=== PATIENT | female | born 1985 | race Caucasian/White ===

== ENCOUNTER → 2020-01-03 11:52 | Outpatient (CLI) | payer BC, SELFPAY ==
[2020-01-03 12:27] LABS: Basophils % 0.5 % (0.1-2.0); Eosinophils # 0.2 K/mm3 (0.0-0.4); Eosinophils % 2.4 % (0.1-12.0); Hematocrit 37.9 % (37.0-47.0); Hemoglobin 11.8 g/dL (12.2-16.2); Lymphocytes # 1.4 K/mm3 (0.7-4.5); Lymphocytes % 20.7 % (10-50); Mean Corpuscular HGB Conc 31.1 g/dL (31.8-35.4); Mean Corpuscular Hemoglobin 25.2 pg (27.0-31.2); Mean Corpuscular Volume 81.2 fl (81-99); Mean Platelet Volume 7.7 fl (7.4-10.4); Monocytes # 0.3 K/mm3 (0.1-1.0); Monocytes % 4.5 % (1.7-9.3); Neutrophils # 4.7 K/mm3 (1.8-7.8); Neutrophils % 71.9 % (37.0-80.0); Platelet Count 286 K/mm3 (142-424); Red Blood Count 4.67 M/mm3 (4.20-5.40); Red Cell Distribution Width 14.4 % (11.5-17.5); White Blood Count 6.5 K/mm3 (4.8-10.8)
[2020-01-04 10:22] LABS: HIV Screen 4th Generation wRfx Non Reactive (Non Reactive); Hepatitis B Surface Antigen Negative (Negative); Hepatitis C Antibody <0.1 s/co ratio (0.0-0.9)
[2020-01-04 15:21] LABS: Rapid Plasma Reagin Ab Titer Non Reactive (NonRea<1:1)
== END ==
PROVIDERS: Visit Provider Nurse Practitioner Obstetrics & Gynecology
DX: Z34.90 Encounter for supervision of normal pregnancy, unspecified, unspecified trimester (principal)
CPT/HCPCS: 36415; 85025; 86592; 86703; 86762; 86850; 87340; 87380; G0432

== ENCOUNTER → 2020-01-04 09:31 | Outpatient (CLI) | payer BC, SELFPAY ==
--- NOTE | 2020-01-04 09:31 | US_ITS ---
PROCEDURE: US OB <= 14 WEEKS FETUS CLINICAL INDICATION: US OB for DATES COMPARISON: No exams were available for comparison FINDINGS: An intrauterine gestational sac is present with a pole with a crown-rump length of 2.1cm correlating to gestational age of 8weeks 6days. heart tones are present with an FHR of 170bpm. Yolk sac is noted. There is a small area of decreased echogenicity along the lower aspect of the gestational sac measuring 12 x 4 mm and could represent a small subchorionic bleed. IMPRESSION: Live IUP at 8 weeks 6 days. Suspect a small subchorionic bleed. Estimated due date by Ultrasound is 08/09/2020 Dictated by: Vijay Soto MD 01/04/2020 13:15 Vijay Soto MD in [place] 01/04/2020 13:15
== END ==
PROVIDERS: Visit Provider Nurse Practitioner Obstetrics & Gynecology
DX: O26.841 Uterine size-date discrepancy, first trimester (principal)
CPT/HCPCS: 76801

== ENCOUNTER → 2020-01-31 14:01 | Outpatient (CLI) | payer BC, SELFPAY ==
[2020-01-31 14:03] LABS: Microscopic, Urine URINE MICROSCOPIC (MICROSCOPIC)
[2020-01-31 15:05] LABS: Appearance,Urine CLEAR (Clear); Bilirubin,Urine Negative (Negative); Blood, Urine Negative (Negative); Color,Urine YELLOW (Yellow); Glucose,Urine (UA) Negative (Negative); Ketones,Urine Negative (Negative); Leukocyte Esterase,Urine 2+ (Negative); Nitrate,Urine Negative (Negative); Protein,Urine Negative (Negative); Specific Gravity, Urine 1.015 (1.005-1.030); Urobilinogen,Urine 0.2 EU/dl (0.2)
[2020-01-31 15:12] LABS: Amorphous Sediment,Urine 1+ /lpf
== END ==
PROVIDERS: Visit Provider Nurse Practitioner Obstetrics & Gynecology
DX: Z34.90 Encounter for supervision of normal pregnancy, unspecified, unspecified trimester (principal); Z3A.13 13 weeks gestation of pregnancy
CPT/HCPCS: 81001; 87086

== ENCOUNTER → 2020-03-25 07:40 | Outpatient (CLI) | payer BC, SELFPAY ==
--- NOTE | 2020-03-25 07:40 | US_ITS ---
PROCEDURE: US OB /MATERNAL DETAIL CLINICAL INDICATION: 20 week gestation Anatomy scan COMPARISON: US US OB <= 14 WEEKS FETUS from 01/04/2020 FINDINGS: There is a single live fetus. In the beginning of the exam the fetus with cephalic but turn to breech position toward the into the exam. The cervix is closed measuring 3 cm in length. The placenta is anterior. Complete survey performed and was unremarkable on the submitted images as in PACS. No discrete anomalies identified on survey imaging by technologist. Active fetus. Three-vessel cord with satisfactory umbilical cord insertion. 4- chamber heart noted. Survey of brain & ventricles Unremarkable. Face and neck survey unremarkable. Diaphragm and chest views unremarkable. Abdomen: Both kidneys noted and unremarkable. Stomach noted and satisfactory. Spine: Survey of the spine satisfactory with no anomalies identified nor imaged. Both arms and legs noted. Amniotic Fluid: Adequate. Maternal adnexa: No significant findings. Measurements: Average ultrasound age 20weeks 5days. Gestational Age 20weeks 3days Estimated due date by ultrasound age 0608/07/2020. Estimated weight 373g BPD = 20weeks 6days OFD = 21weeks 1day HC = 20weeks 2days AC = 20weeks 6days FL = 20weeks 6days Growth Percentile= 62Percent% Heart Rate = 127bpm Cerebellum = 20weeks 6days Humerus = 20weeks 5days HC/AC is 1.14 CI is 0.77 FL/BPD is 0.70 FL/AC is 0.22 IMPRESSION: Single live fetus in breech presentation with an average ultrasound age 20 weeks and 5 days. No obvious anomalies. Please see above for detail. Dictated by: Vijay Soto MD 03/26/2020 10:09 Vijay Soto MD in [facility] 03/26/2020 10:09
== END ==
PROVIDERS: PCP Internal Medicine Adolescent Medicine; Visit Provider Nurse Practitioner Obstetrics & Gynecology
DX: Z34.90 Encounter for supervision of normal pregnancy, unspecified, unspecified trimester (principal); Z3A.20 20 weeks gestation of pregnancy
CPT/HCPCS: 76811

== ENCOUNTER 2020-05-05 08:22 | Outpatient (CLI) | payer BC, SELFPAY ==
[2020-05-05 09:06] LABS: Glucose,Fasting 101 mg/dl (74-100)
[2020-05-05 10:15] VITALS: BP 123/74; PULSE 106; RESP 18; TEMP 36.3; O2SAT 100
[2020-05-05 10:34] LABS: Glucose 1 Hour 166 mg/dL (74-100)
== END 2020-05-05 10:15 | disposition home or self-care (01) ==
LOC: LAB 08:23 → INF 10:09
PROVIDERS: Visit Provider Nurse Practitioner Obstetrics & Gynecology
DX: Z34.90 Encounter for supervision of normal pregnancy, unspecified, unspecified trimester (principal)
CPT/HCPCS: 36415; 82951; 96372; J2790

== ENCOUNTER → 2020-05-16 08:17 | Outpatient (CLI) | payer BC, SELFPAY ==
[2020-05-16 09:59] LABS: Glucose,Fasting 94 mg/dl (74-100)
[2020-05-16 11:15] LABS: Glucose 1 Hour 143 mg/dL (74-100)
[2020-05-16 12:26] LABS: Glucose 2 Hour 116 mg/dL (74-100)
[2020-05-16 12:38] LABS: Glucose 3 Hour 115 mg/dL (74-100)
== END ==
PROVIDERS: Visit Provider Nurse Practitioner Obstetrics & Gynecology
DX: O99.810 Abnormal glucose complicating pregnancy (principal); Z34.90 Encounter for supervision of normal pregnancy, unspecified, unspecified trimester
CPT/HCPCS: 36415; 82951

== ENCOUNTER → 2020-07-16 16:57 | Outpatient (CLI) | payer BC, SELFPAY | PROVIDERS: Visit Provider Nurse Practitioner Obstetrics & Gynecology | DX: Z34.90 Encounter for supervision of normal pregnancy, unspecified, unspecified trimester (principal) | CPT/HCPCS: 86403 ==

== ENCOUNTER 2020-08-04 04:53 | Inpatient (IN) | payer BC, SELFPAY ==
[2020-08-04 05:06] VITALS: BMI 32.4
[2020-08-04 05:36] VITALS: BP 124/81; PULSE 85; RESP 18; TEMP 36.9; O2SAT 97; BMI 32.4
[2020-08-04 05:38] LABS: Microscopic, Urine URINE MICROSCOPIC (MICROSCOPIC)
[2020-08-04 05:50] LABS: Appearance,Urine SL CLOUDY (Clear); Bilirubin,Urine Negative (Negative); Blood, Urine Negative (Negative); Color,Urine YELLOW (Yellow); Glucose,Urine (UA) Negative (Negative); Ketones,Urine Negative (Negative); Leukocyte Esterase,Urine TRACE (Negative); Nitrate,Urine Negative (Negative); PH,Urine 6.5 (5.0-8.5); Protein,Urine Negative (Negative); Specific Gravity, Urine 1.025 (1.005-1.030); Urobilinogen,Urine 0.2 EU/dl (0.2)
[2020-08-04 05:57] LABS: Basophils % 0.4 % (0.1-2.0); Eosinophils # 0.3 K/mm3 (0.0-0.4); Eosinophils % 4.3 % (0.1-12.0); Hematocrit 36.3 % (37.0-47.0); Hemoglobin 12.4 g/dL (12.2-16.2); Lymphocytes # 1.5 K/mm3 (0.7-4.5); Lymphocytes % 24.7 % (10-50); Mean Corpuscular HGB Conc 34.1 g/dL (31.8-35.4); Mean Corpuscular Hemoglobin 29.4 pg (27.0-31.2); Mean Corpuscular Volume 86.3 fl (81-99); Mean Platelet Volume 10.1 fl (7.4-10.4); Monocytes # 0.4 K/mm3 (0.1-1.0); Monocytes % 5.7 % (1.7-9.3); Neutrophils % 64.9 % (37.0-80.0); Platelet Count 202 K/mm3 (142-424); Red Blood Count 4.21 M/mm3 (4.20-5.40); Red Cell Distribution Width 15.3 % (11.5-17.5); White Blood Count 6.2 K/mm3 (4.8-10.8)
[2020-08-04 06:01] LABS: Amphetamine/Metha Screen,Urine Negative ng/ml (<1000)
[2020-08-04 06:02] LABS: Bacteria,Urine Trace /lpf; Barbiturates Screen,Urine Negative ng/ml (<200); Benzodiazepines Screen,Urine Negative ng/ml (<200); Mucus,Urine 1+ /lpf
[2020-08-04 06:03] LABS: Cannabinoid Screen,Urine Negative ng/ml (<50)
[2020-08-04 06:04] LABS: Cocaine Screen,Urine Negative ng/ml (<300); Methadone Screen,Urine Negative ng/ml (<300)
[2020-08-04 06:05] LABS: Phencyclidine Screen,Urine Negative ng/ml (<25)
[2020-08-04 06:06] LABS: Opiate Screen,Urine Negative ng/ml (<300)
[2020-08-04 07:41] VITALS: BP 124/77; PULSE 84; RESP 18; TEMP 36.7; O2SAT 98
--- NOTE | 2020-08-04 09:26 | HMH.LABNOT ---
Labor Note - Subjective: Date: 08/04/20 Time: 09:26 regular contraction - Objective: NST:: Reactive Contractions:: every 2-3 minutes Cervical Dilation:: 3 Effacement:: 50% Station: -2 Membranes: artificially ruptured Comment:: Clear fluid - Fetus: Monitoring?: Yes monitoring type:: External - Assessment: Labor progressing?: Yes Cephalopelvic disproportion?: No Patient Problems: All Active Problems (Acute) Encounter for Routine Gynecological Examination (Acute) - Plan: Anesthesia for epidural?: Yes Continue to labor down?: Yes Plan for ?: No Continue to monitor?: Yes Start pushing?: No
--- NOTE | 2020-08-04 09:27 | HMH.OBAPHP ---
OB - H&P: HPI Antepartum - History of Present Illness Chief complaint: Term History of present illness: She is a 34-year-old 3 para 2 at 39 and 2 weeks gestational age. She has had 2 previous vaginal deliveries and was feeling some pressure. She requested delivery at term. - History of Present Criteria for establishing EDC:: LMP confirmed by 1st trimester US care: good care Ultrasounds: normal 1st trimester US, normal mid trimester US Obstetrical complications: none Medical complications: none - Labs Blood type: A (-) negative Rubella: immune RPR/VDRL: nonreactive GBS status: negative HBsAG: negative [facility] History I have reviewed the patient's past medical history: Yes *Have you ever received a pneumonia vaccine?: No *Have you received a flu vaccine this season?: No Other Surgeries: Yes: No Previous Surgery. No: Amputation: No Fractures: No - *Social History Smoking Status: Never smoker Alcohol Intake: never Alcohol Intake Frequency:: other Substance Use Type: denies use *Occupational Status:: unemployed *Travel in the last 8 weeks: None Family Hx:: No significant family history Para: 2 Review of Systems - Review of Systems Review of systems:: pertinent systems reviewed and negative unless documented below Meds Home Medications Medication Instructions Recorded Confirmed Type prenat.vits,franko,aat-xvie-dianb 1 tab PO DAILY 01/03/20 08/04/20 History Ferrous Sulfate 325 mg PO DAILY 08/04/20 08/04/20 History Allergies Allergy/AdvReac Type Severity Reaction Status Date / Time No Known Allergies Allergy Verified 07/30/20 09:13 OB - H&P: Exam - Physical Exam Vital signs: Temp Pulse Resp BP Pulse Ox 98.0 F 84 18 124/77 98 08/04/20 07:41 08/04/20 07:41 08/04/20 07:41 08/04/20 07:41 08/04/20 07:41 - Constitutional no acute distress - Routine HEENT Exam Head: Present: normocephalic Eye: Present: EOMI, PERRL ENT: Present: mucous membranes moist - Routine Neck Exam Present: supple, full ROM - Routine Respiratory Exam Absent: accessory muscle use (good air entry bilaterally), respiratory distress, wheezes, crackles - Routine Cardiovascular Exam Present: RRR. Absent: murmur - Routine Abdominal Exam Present: soft, normoactive bowel sounds. Absent: tenderness, distended, guarding - Routine Rectal Exam Patient deferred: visual exam, digital exam - Routine Exam Patient deferred: external exam, groin exam, perineal exam - Routine Extremities Exam Present: full ROM. Absent: cyanosis, edema - Routine Skin Exam Present: intact. Absent: cyanosis - Routine Neurological Exam Present: alert, oriented X3 - Routine Psychiatric Exam Present: normal affect OB - Results - Labs Labs: Short CBC 08/04/20 Range/Units 05:25 WBC 6.2 (4.8-10.8) K/mm3 Hgb 12.4 (12.2-16.2) g/dL Hct 36.3 L (37.0-47.0) % Plt Count 202 (142-424) K/mm3 Urine 08/04/20 Range/Units 05:10 Urine Color Yellow (Yellow) Urine Appearance Sl cloudy (Clear) Urine pH 6.5 (5.0-8.5) Ur Specific [place] 1.025 (1.005-1.030) Urine Protein Negative (Negative) Urine Glucose (UA) Negative (Negative) OB - A/P Antepartum (1) Normal delivery Status: Acute - Additional Plan Planning to breastfeed?: Yes Plan: induction Additional Information:: I have ruptured her membranes and there was clear fluid. She is having regular contractions. We will expect a vaginal delivery.
--- NOTE | 2020-08-04 10:58 | HMH.ANESCL ---
[facility] Anesthesia Checklist - Patient Identification Patient Identification: Arm Band - Structural Data Admitted From: Inpatient Planned Operative Procedure/s: labor epidural Consent for Planned Operative Procedure(s) Verified: Yes Verified Documents: Surgical Consent, History and Physical - NPO Status Verified Time NPO: 00:00 - Additional verifications Anesthesia Reactions: No - Airway Assessment C-Spine Mobility Assessed: Yes TMJ Mobility Assessed: Yes Dentition: Good Dentition - Neurological Assessment Level of Consciousness: Awake, Alert - Anesthesia Plan Anesthesia Risk discussed: Yes Anesthesia Plan: Verified ASA Class: II Anesthesia Type: Epidural [facility] History I have reviewed the patient's past medical history: Yes *Have you ever received a pneumonia vaccine?: No *Have you received a flu vaccine this season?: No Anesthesia experience/problems:: nac Other Surgeries: Yes: No Previous Surgery. No: Amputation: No Fractures: No - *Social History Smoking Status: Never smoker Alcohol Intake: never Alcohol Intake Frequency:: other Substance Use Type: denies use *Occupational Status:: unemployed *Travel in the last 8 weeks: None Family Hx:: No significant family history Para: 2
--- NOTE | 2020-08-04 11:23 | HMH.LABNOT ---
Labor Note - Subjective: Date: 08/04/20 Time: 11:23 regular contraction - Objective: NST:: Reactive Contractions:: every 2-3 minutes Cervical Dilation:: 4-5 Effacement:: 75% Station: -2 Membranes: artificially ruptured - Fetus: Monitoring?: Yes monitoring type:: External - Assessment: Labor progressing?: Yes Cephalopelvic disproportion?: No Patient Problems: All Active Problems Normal delivery (Acute) (Acute) Encounter for Routine Gynecological Examination (Acute) - Plan: Anesthesia for epidural?: Yes Continue to labor down?: Yes Plan for ?: No Continue to monitor?: Yes Start pushing?: No Comment:: She continues to do well. She has an epidural. Cervix is 4-5. Nonstress test is reactive. She is alice every 2 to 3 minutes. We will expect a vaginal delivery.
[2020-08-04 12:05] VITALS: BP 125/78; PULSE 79; RESP 18; TEMP 36.7; O2SAT 99
[2020-08-04 13:46] LABS: Cord Blood PH 7.31 (7.35-7.45)
--- NOTE | 2020-08-04 13:56 | P.PCN_ITS ---
- Delivery Note Delivery Date:: 08/04/20 Delivery Time:: 13:29 Anesthesia Type: Epidural Was labor medically induced?: Yes Induction method: per pitocin protocol Gestational age (weeks): 39 Infant delivered prior to 39 weeks?: No Infant Gender: Male at 1 minute: 8 at 5 minutes: 9 LAC or MLE?: LAC Delivery Procedure:: She is a 34-year-old 3 para 2 who was 39+2 weeks gestational age. She was feeling a lot of pressure and discomfort so we elected to induce her labor at term. She was started on IV oxytocin and had her membranes ruptured. Under labor epidural she progressed to full dilation and delivered spontaneously a liveborn male child at 1:29 PM in the afternoon of August 04, 2020. On deliver the head the anterior shoulder then easily delivered followed by the rest the infant's body atraumatically. The baby was vigorous and we allowed the cord to continue to pulsate for approximately 1 minute. The cord was then doubly clamped and cut and the infant was then placed on the mother's abdomen for further care. The nurses assigned Apgars of 8 at 1 minute and 9 at 5 minutes. We then obtained cord blood as well as cord pH. Using gentle traction on the cord and countertraction on the fundus I was able to easily deliver the placenta intact. Had a normal three-vessel cord. She had a small second-degree perineal laceration that was repaired in the usual fashion with 3-0 Vicryl Rapide suture to the superficial tissues and 2-0 Vicryl suture to the deep tissues of the perineum. She has a Rh- blood, she is rubella immune and was group B streptococcus negative. She plans to breast-feed. 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 Estimated blood loss was approximately 400 cc. Placental Delivery Description: Spontaneous
[2020-08-04 16:51] VITALS: BP 103/60; PULSE 84; RESP 18; TEMP 36.8; O2SAT 98
[2020-08-04 19:48] VITALS: BP 99/69; PULSE 72; RESP 16; TEMP 36.6; O2SAT 98
[2020-08-05 00:01] VITALS: BP 109/64; PULSE 68; RESP 16; TEMP 36.5
[2020-08-05 03:59] VITALS: BP 133/83; PULSE 94; RESP 18; TEMP 36.4
[2020-08-05 06:45] LABS: Hematocrit 34.7 % (37.0-47.0); Hemoglobin 11.5 g/dL (12.2-16.2)
[2020-08-05 08:25] VITALS: BP 112/65; PULSE 83; RESP 18; TEMP 36.6; O2SAT 98
--- NOTE | 2020-08-05 08:59 | HMH.ACPN2 ---
Internal Medicine - PN: Subj *Date: 08/05/20 *Time: 08:59 Interval history: She is 1 day from a vaginal delivery. She is doing very well. She is breast-feeding. Her lochia is normal. Exam Vital signs and Labs for Last 24 Hours: Temp Pulse Resp BP Pulse Ox 97.8 F 83 18 112/65 98 08/05/20 08:25 08/05/20 08:25 08/05/20 08:25 08/05/20 08:25 08/05/20 08:25 Laboratory Results - last 24 hr 08/04/20 05:25: Blood Type A Negative, Antibody Screen Negative 08/04/20 13:42: Cord ABG pH 7.31 L 08/05/20 06:09: Hgb 11.5 L, Hct 34.7 L 08/05/20 06:17: Screen Negative, Baby's Rh Status Positive I & O for Last 24 hours: Intake & Output 08/02/20 08/03/20 08/04/20 08/05/20 11:59 11:59 11:59 11:59 Weight 189 lb Microbiology Reports for the Last 24 Hours: Microbiology 08/04/20 05:25 Nasopharyngeal Coronavirus COVID-19 PCR - Final - Constitutional no acute distress - *Routine HEENT Exam Head: Present: normocephalic Eye: Present: EOMI, PERRL ENT: Present: mucous membranes moist Assessment and Plan (1) Normal delivery Status: Acute Category: Medical Code(s): O80 - Encounter for full-term uncomplicated delivery - Assessment and plan all Dx Assessment and Plan for all problems:: She continues to do well 1 day . We will plan to send her home in the morning. She is breast-feeding well.
[2020-08-05 12:10] VITALS: BP 123/69; PULSE 71; RESP 18; TEMP 36.7; O2SAT 99
--- NOTE | 2020-08-06 09:59 | P.DS_ITS ---
General - General Admission date:: 08/04/20 Discharge date: 08/06/20 HPI - History of Present Illness History of present illness: She is a 34-year-old 3 now para 3 who was 39 and 5 weeks gestational age. She was having pressure and discomfort and as result of that we elected to induce her labor at term. Hospital Course Hospital Course: She was started on IV oxytocin had her membranes ruptured. Under labor epidural she progressed to full dilation and delivered spontaneously a liveborn male child on the afternoon of August 04, 2020.. The baby weighed 8 pounds 15 ounces. The Apgars were 8 at 1 minute and 9 at 5 minutes. She had a small second-degree perineal laceration. She has done well and has remained afebrile throughout her hospitalization. She is eating and drinking and ambulating. She is breast- feeding. Her lochia is normal. She has a Rh- blood and has received RhoGam. She is rubella immune and was group B streptococcus negative. Her nail making machine setter is Dr. Steward. She will be discharged home to follow-up with me in approximately 2 weeks time. She will continue with her vitamins and iron. She was given the usual instructions with respect to limiting her activity, driving and sexual activity. Her condition on discharge is stable and improved Rhogam Administration: Given Objective Vital signs: Temp Pulse Resp BP Pulse Ox 98.0 F 71 18 123/69 99 08/05/20 12:10 08/05/20 12:10 08/05/20 12:10 08/05/20 12:10 08/05/20 12:10 no acute distress - *Routine HEENT Exam Head: Present: normocephalic Eye: Present: EOMI, PERRL ENT: Present: mucous membranes moist Results Labs on day of discharge: Labs from last 24 hours 08/05/20 06:17 Rhogam Infusion Rhogam release DS: Diagnosis - Discharge Diagnosis (1) Normal delivery Status: Acute Discharge Plan - Patient Discharge Instructions ACTIVITY: No heavy lifting DIET: continue same diet Additional Instructions: NO HEAVY LIFTING, NO DRIVING TWO WEEKS, NOTHING IN THE VAGINA 6 WEEKS. Patient Instructions: Depression, Hemorrhage, DI for Labor and Delivery, Vaginal , DI for Pre-eclampsia, [facility] Post Discharge Instructions, Preventing the Spread of Coronavirus Discharge Instructions - Follow up Plan Disposition: Home, Self-Care Condition at discharge:: Stable Home Medications: Home Medications Medication Instructions Recorded Confirmed Type prenat.vits,franko,ljb-pmfi-umjjl 1 tab PO DAILY 01/03/20 08/04/20 History Ferrous Sulfate 325 mg PO DAILY 08/04/20 08/04/20 History Prescriptions/Medication Reconciliation: Continued prenat.vits,franko,yjs-vefy-klzan 1 tab PO DAILY Ferrous Sulfate 325 mg PO DAILY - Problem Reconciliation Problems Reviewed?: Yes
== END 2020-08-06 11:17 | disposition home or self-care (01) | DRG 807 ==
PROVIDERS: Admitting Provider Nurse Practitioner Obstetrics & Gynecology; Visit Provider Nurse Practitioner Obstetrics & Gynecology
DX: O70.1 Second degree perineal laceration during delivery (principal); Z37.0 Single live birth; Z3A.39 39 weeks gestation of pregnancy
CPT/HCPCS: 59409; 59025; 80305; 81001; 82800; 85014; 85018; 85025; 85461; 86850; 94761; G0283; J2790; U0003

== ENCOUNTER 2021-04-09 12:01 | Emergency (ER) | payer BC, SELFPAY ==
[2021-04-09 13:27] VITALS: BP 145/87; PULSE 113; RESP 20; TEMP 36.6; O2SAT 98; BMI 29.2
--- NOTE | 2021-04-09 13:58 | HMH.EDUTC ---
[facility] [place] Disposition Clinical Impression: Otitis media Qualifiers: Otitis media type: unspecified Laterality: right Qualified Code(s): H66.91 - Otitis media, unspecified, right ear Disposition: Home, Self-Care Condition on Discharge: Good Instructions: Middle Ear Infection, Methylprednisolone, Amoxicillin Additional Instructions: *Monitor Temp, Over the counter Motrin or Tylenol as directed/as needed Tylenol every 4 hours and Motrin every 6 hours (as long as your family doctor has told you that you can take it) for fever or pain. and straight to ER if unable to lower temp less than 101.0 after medication given *Warm salt water gargles may help to soothe the throat *Throat Lozenges *Humidifier/Vaporizer Take medication as prescribed Return if needed Follow up IMMEDIATELY for new or worsening symptoms or no Noticeable improvement over the next 48-72 hours. 911 for difficulty breathing or swallowing Prescriptions: Amoxicillin [Amoxicillin 875MG Tab] 875 mg PO Q12H #20 tab Transmission Status: Pending to [facility] methylPREDNISolone [Medrol 4mg tab] 4 mg PO DIRECTED #21 tab Transmission Status: Pending to [facility] Referrals: Provider,Referral, [Primary Care Provider] - As needed Time of Disposition: 14:06 Medical Decision Making - Todd Inquiry Pt receiving controlled substance: No Todd was queried for this patient: No Vital Signs: 04/09/21 13:27 Temperature 98 F Temperature Source Oral Pulse Rate [Left] 113 H Respiratory Rate 20 Blood Pressure [Right Arm] 145/87 H Blood Pressure Mean [Right Arm] 106 02 Sat by Pulse Oximetry 98 Medical Decision Narrative: Patient denies states that LMP was last week States that she has taken amoxicillin in he past without reactions or complications [facility] [place] HPI - General Stated complaint: right ear pain Time Seen by Provider: 04/09/21 13:58 Mode of Arrival: Ambulatory Source of Information: Patient Limitations: No Limitations Description of Symptoms (Recalled from Triage Doc. by RN): pt c/o a R ear ache x5 days. HEENT Symptoms (Recalled from RN notes): Yes Resp Symptoms (Recalled from RN notes): No Skin Symptoms (Recalled from RN notes): No MS Symptoms (Recalled from RN notes): No Functional Status (Recalled from RN notes): wnl - History of Present Illness Provider Complaint: Patient states that she has been having pain in her right ear and sinuses for about 5 days State that she has tried several over the counter medications but they have not helped States that today she was still having pain and discomfort so she came in to get it checked out - Related Data Home Medications Medication Instructions Recorded Confirmed prenat.vits,franko,gvo-nbtf-mvkow 1 tab PO DAILY 01/03/20 02/03/21 Ferrous Sulfate 325 mg PO DAILY 08/04/20 02/03/21 Previous Rx's Medication Instructions Recorded Amoxicillin [Amoxicillin 875MG 875 mg PO Q12H #20 tab 04/09/21 Tab] methylPREDNISolone [Medrol 4mg 4 mg PO DIRECTED #21 tab 04/09/21 tab] Allergies Allergy/AdvReac Type Severity Reaction Status Date / Time No Known Allergies Allergy Verified 02/03/21 14:12 - Worker's Comp Is this a Worker's Comp case?: No [facility] History - Hepatitis A Screen Drug use history?: No High risk sexual behaviors?: No History of sexually transmitted infection?: No Currently employed?: No Childcare worker?: No Do you have indoor plumbing?: Yes Do you have electricity?: Yes Attestation statement:: This patient has been screened for Hepatitis A risk factors. I have reviewed the patient's past medical history: Yes Other Surgeries: Yes: No Previous Surgery. No: Amputation: No Fractures: No - Social History Smoking Status: Never smoker Alcohol Intake: never Alcohol Intake Frequency:: other Substance Use Type: denies use Occupational Status: unemployed Family Hx:: No significant family history ROS Obtained: Yes All
[2021-04-09 14:11] VITALS: BP 145/87; PULSE 113; RESP 20; TEMP 36.6
== END 2021-04-09 14:17 | disposition home or self-care (01) ==
PROVIDERS: Emergency Provider Nurse Practitioner
DX: H66.91 Otitis media, unspecified, right ear (principal)
CPT/HCPCS: 99202; G0463

== ENCOUNTER 2021-04-17 09:15 | Emergency (ER) | payer BC, SELFPAY ==
[2021-04-17 09:20] VITALS: BP 131/87; PULSE 85; RESP 18; TEMP 36.6; O2SAT 98; BMI 26.6
--- NOTE | 2021-04-17 09:45 | HMH.EDUTC ---
[facility] [place] Dis[place] Clinical Impression: Otitis media Qualifiers: Otitis media type: unspecified Laterality: right Qualified Code(s): H66.91 - Otitis media, unspecified, right ear Disposition: Home, Self-Care Condition on Discharge: Good Instructions: Middle Ear Infection, Cefdinir Additional Instructions: Stop the amoxicillin and start the Cefdinir and take as directed Return if needed Straight to ER if any life threatening symptoms Use flonase as prescribed may take 2-3 days to start feeling it work Follow up with your Family Doctor if no improvement Prescriptions: Fluticasone Propionate [Flonase 50mcg nasal spray 16gm] 1 - 2 spr NS DAILY #1 each Transmission Status: Pending to [facility] Cefdinir [Omnicef 300mg Capsule] 300 mg PO BID #20 cap Transmission Status: Pending to [facility] predniSONE [Prednisone 20mg Tab] 20 mg PO BID 5 Days #10 tab Transmission Status: Pending to [facility] Referrals: Provider,Referral, MD [Primary Care Provider] - As needed Time of Disposition: 09:54 Medical Decision Making - Todd Inquiry Pt receiving controlled substance: No Todd was queried for this patient: No Vital Signs: 04/17/21 09:20 Temperature 97.8 F Temperature Source Oral Pulse Rate [Right Brachial] 85 Respiratory Rate 18 Blood Pressure [Right Arm] 131/87 Blood Pressure Mean [Right Arm] 101 Blood Pressure Source [Right Arm] Automatic Cuff Blood Pressure Position [Right Arm] Sitting 02 Sat by Pulse Oximetry 98 Oxygen Delivery Method Room Air [facility] [place] HPI - General Stated complaint: sinus drainage, rt ear pain Time Seen by Provider: 04/17/21 09:45 Mode of Arrival: Ambulatory Source of Information: Patient Limitations: No Limitations Description of Symptoms (Recalled from Triage Doc. by RN): PATIENT C/O SINUS DRAINAGE AND CLOGGED RIGHT EAR X 1 WEEK HEENT Symptoms (Recalled from RN notes): Yes Resp Symptoms (Recalled from RN notes): No Skin Symptoms (Recalled from RN notes): No MS Symptoms (Recalled from RN notes): No Functional Status (Recalled from RN notes): WNL - Related Data Previous Rx's Medication Instructions Recorded Cefdinir [Omnicef 300mg Capsule] 300 mg PO BID #20 cap 04/17/21 Fluticasone Propionate [Flonase 1 - 2 spr NS DAILY #1 each 04/17/21 50mcg nasal spray 16gm] predniSONE [Prednisone 20mg 20 mg PO BID 5 Days #10 tab 04/17/21 Tab] Allergies Allergy/AdvReac Type Severity Reaction Status Date / Time No Known Allergies Allergy Verified 02/03/21 14:12 - Worker's Comp Is this a Worker's Comp case?: No H History - Hepatitis A Screen Drug use history?: No High risk sexual behaviors?: No History of sexually transmitted infection?: No Currently employed?: No Childcare worker?: No Do you have indoor plumbing?: Yes Do you have electricity?: Yes Attestation statement:: This patient has been screened for Hepatitis A risk factors. Other Surgeries: Yes: No Previous Surgery. No: Amputation: No Fractures: No - Social History Smoking Status: Never smoker Alcohol Intake: never Alcohol Intake Frequency:: other Substance Use Type: denies use Occupational Status: other Family Hx:: No significant family history ROS Obtained: Yes All systems reviewed & no additional complaints, Yes Systems reviewed as appropriate & no additional complaints - Constitutional Constitutional: Reports system reviewed and no additional complaints, except as docu - Eyes Eyes: Reports system reviewed and no additional complaints, except as docu - ENT Ears, Nose, Mouth, and Throat: Reports system reviewed and no additional complaints, except as docu, Reports otalgia, Reports sinus pressure - Cardiovascular Cardiovascular: Reports system reviewed and no additional complaints, except as docu - Respiratory Respiratory: Reports system reviewed and no additional complaints, except as docu - Gastrointestinal Gastrointestingal: Reports:
[2021-04-17 09:54] VITALS: BP 131/87; PULSE 85; RESP 18; TEMP 36.6; O2SAT 98
== END 2021-04-17 09:57 | disposition home or self-care (01) ==
PROVIDERS: Emergency Provider Nurse Practitioner
DX: H66.91 Otitis media, unspecified, right ear (principal)
CPT/HCPCS: 99202; G0463

== ENCOUNTER 2022-01-19 08:53 | Emergency (ER) | payer BC, SELFPAY ==
[2022-01-19 09:10] VITALS: BP 131/82; PULSE 101; RESP 18; TEMP 36.6; O2SAT 98; BMI 32.4
--- NOTE | 2022-01-19 09:29 | EXP.UTC ---
Discharge Plan Disposition Patient Disposition: Home, Self-Care Condition: Good Prescriptions Prescriptions: New methylprednisolone [Medrol (Tobias)] 4 mg tablets,dose pack See Rx Instructions .Route .COMPLEX 6 Days Qty: 21 0RF Rx Instructions: taper pack; amoxicillin-pot clavulanate 875-125 mg Tablet 1 tab PO Q12H Qty: 20 0RF guaifenesin [Mucinex] 600 mg tablet extended release 12hr 600 mg PO BID PRN (Reason: cough) Qty: 20 0RF No Action prenat.vits,franko,nnx-yhjo-otfhs Tablet 1 tab PO DAILY Referrals Follow up/Referrals: Provider,Referral, MD [Primary Care Provider] - See instructions Activity Restrictions/Add. Instructions Additional Instructions/Restrictions: Start antibiotic today. Be sure to complete entire prescription even if feeling better Monitor temp. Tylenol every 4 hours as needed and / or ibuprofen every 6 hours as needed ( As long as your primary care physician has told you that it ok to take both. For fever/aches/pains ER if no less than 101 despite Tylenol or Motrin Humidifier/vaporizer or hot steamy shower Mucinex for your cough and chest congestion. Be sure to drink lots of water.. *Start steroid today. Helps with inflammation therefore, cough and wheezing. Follow directions on the package. Reviewed side effects. Patient reports taking them before. Follow up IMMEDIATELY for new or worsening of symptoms OR no noticeable improvement over the next 48-72 hours. 911 immediately for any life threatening symptoms such as chest pain or difficulty breathing Clinical Impressions Clinical Impression: Bronchitis Sinusitis Qualifiers: Sinusitis location: unspecified location Chronicity: unspecified Qualified Code(s): J32.9 - Chronic sinusitis, unspecified Instructions Patient Instructions: Sinusitis, Acute Bronchitis, DI for Sinusitis Discharge ED Provider: Minerva Valdez [facility] General Stated complaint: cough, congestion, ear pain, sinus drainage Mode of Arrival: Ambulatory Source of Information: Patient Limitations: No Limitations Time Seen by Provider: 01/19/22 09:29 Description of Symptoms (Recalled from Triage Doc. by RN): PATIENT C/O EAR PAIN, SORE THROAT, COUGH AND CONGESTION SINCE TUESDAY HEENT Symptoms (Recalled from RN notes): Yes Resp Symptoms (Recalled from RN notes): Yes Skin Symptoms (Recalled from RN notes): No MS Symptoms (Recalled from RN notes): No Functional Status (Recalled from RN notes): WNL History of Present Illness Provider Complaint: Patient states she started feeling bad on . States that she has been having pain and pressure in both ears sinus pain and pressure cough congestion. States today she was still having pain pressure behind her eyes and in both ears and not feeling well so she came in to get checked Related Data Home Medications Medication Instructions Recorded Confirmed prenat.vits,franko,mwd-qosw-kipvb 1 tab PO DAILY 11/09/21 11/09/21 Previous Rx's Medication Instructions Recorded amoxicillin 875 mg-potassium 1 tab PO Q12H #20 tabs 01/19/22 clavulanate 125 mg tablet guaifenesin 600 mg tablet, 600 mg PO BID PRN cough #20 tabs 01/19/22 extended release 12 hr (Mucinex) methylprednisolone 4 mg tablets in See Rx Instructions .Route 01/19/22 a dose pack (Medrol (Tobias)) .COMPLEX 6 days #21 tabs Allergies Allergy/AdvReac Type Severity Reaction Status Date / Time No Known Allergies Allergy Verified 11/09/21 14:12 Worker's Comp Is this a Worker's Comp case?: No PFSH PFSH Medical History (Updated 01/19/22 @ 09:38 by Minerva Valdez APRN) No significant past medical history Social History (Updated 01/19/22 @ 09:25 by Isabell Beltran RN) Smoking Status: Never smoker alcohol intake: never substance use type: denies use current occupational status: other Travel in the last 8 weeks: None ROS Obtained: Yes All systems reviewed & no addition
[2022-01-19 09:45] VITALS: BP 131/82; PULSE 101; RESP 18; TEMP 36.6; O2SAT 98
== END 2022-01-19 09:48 | disposition home or self-care (01) ==
PROVIDERS: Emergency Provider Nurse Practitioner
DX: J40 Bronchitis, not specified as acute or chronic (principal); J32.9 Chronic sinusitis, unspecified
CPT/HCPCS: 99212

== ENCOUNTER 2022-01-28 08:29 | Emergency (ER) | payer BC, SELFPAY ==
[2022-01-28 09:15] VITALS: BP 142/91; PULSE 88; RESP 18; TEMP 37.2; O2SAT 99; BMI 31.7
--- NOTE | 2022-01-28 09:35 | EXP.UTC ---
Discharge Plan Disposition Patient Disposition: Home, Self-Care Condition: Good Prescriptions Prescriptions: New levofloxacin 750 mg tablet 750 mg PO DAILY 7 Days Qty: 7 0RF albuterol sulfate [Proventil HFA] 90 mcg/actuation HFA aerosol inhaler 1 inh inhalation Q6H PRN (Reason: shortness of breath or wheezing) Qty: 8.5 0RF cetirizine [Zyrtec] 10 mg tablet 10 mg PO DAILY Qty: 30 0RF No Action prenat.vits,franko,qeu-mgyd-zockh Tablet 1 tab PO DAILY methylprednisolone [Medrol (Tobias)] 4 mg tablets,dose pack See Rx Instructions .Route .COMPLEX 6 Days Qty: 21 0RF Rx Instructions: taper pack; amoxicillin-pot clavulanate 875-125 mg Tablet 1 tab PO Q12H Qty: 20 0RF guaifenesin [Mucinex] 600 mg tablet extended release 12hr 600 mg PO BID PRN (Reason: cough) Qty: 20 0RF Referrals Follow up/Referrals: Provider,Referral, MD [Primary Care Provider] - See instructions Activity Restrictions/Add. Instructions Additional Instructions/Restrictions: Start antibiotic today. Be sure to complete entire prescription even if feeling better Monitor temp. Tylenol every 4 hours as needed and / or ibuprofen every 6 hours as needed ( As long as your primary care physician has told you that it ok to take both. For fever/aches/pains ER if no less than 101 despite Tylenol or Motrin Humidifier/vaporizer or hot steamy shower Inhaler every 4-6 hours as needed like we discussed. If unsure how to use it, ask pharmacist to demonstrate how. Should help open airways and improve cough, wheezing, and shortness of breath Mucinex for your cough Be sure to drink lots of water. Insurance may not cover a prescriptions for mucinex. Might be cheaper to get 400mg tablets and take 2 tablet in the morning, mid-day and evening with lots of water. *Tessalon Perles will not cause drowsiness but use at bedtime to help stop cough so that you may get some rest. Follow up IMMEDIATELY for new or worsening of symptoms OR no noticeable improvement over the next 48-72 hours. 911 immediately for any life threatening symptoms such as chest pain or difficulty breathing Clinical Impressions Clinical Impression: Bronchitis Sinusitis Qualifiers: Sinusitis location: unspecified location Chronicity: unspecified Qualified Code(s): J32.9 - Chronic sinusitis, unspecified Instructions Patient Instructions: Sinusitis, Acute Bronchitis, DI for Sinusitis Discharge ED Provider: Minerva Valdez [facility] [place] HPI General Stated complaint: Sinus drainage, pressure behind LT ear Mode of Arrival: Ambulatory Source of Information: Patient Limitations: No Limitations Time Seen by Provider: 01/28/22 09:35 Description of Symptoms (Recalled from Triage Doc. by RN): PATIENT C/O EAR AND SINUS PRESSURE. SHE REPORTS SHE WAS GIVEN A Z-PACK LAST TUESDAY AND IS BETTER, BUT STILL IS HAVING THE PRESSURE HEENT Symptoms (Recalled from RN notes): Yes Resp Symptoms (Recalled from RN notes): No Skin Symptoms (Recalled from RN notes): No MS Symptoms (Recalled from RN notes): No Functional Status (Recalled from RN notes): WNL History of Present Illness Provider Complaint: Patient states that she has been having sinus pain and pressure for a couple weeks State that she was seen and was given a couple medications States that she has finished the steriod pack but still having the sinus pain and pressure with pressure behind her ears and wet cough States that it feels like it is moving into her lungs so she came back in Related Data Home Medications Medication Instructions Recorded Confirmed prenat.vits,franko,ssp-ovsu-rvfub 1 tab PO DAILY 11/09/21 11/09/21 Previous Rx's Medication Instructions Recorded amoxicillin 875 mg-potassium 1 tab PO Q12H #20 tabs 01/19/22 clavulanate 125 mg tablet guaifenesin 600 mg tablet, 600 mg PO BID PRN cough #20 tabs 01/19/22 extended release 12 hr (Mucinex) methylpr
[2022-01-28 10:07] LABS: UTC Pregnancy Test, Urine Negative (Negative)
[2022-01-28 10:14] VITALS: BP 142/91; PULSE 88; RESP 18; TEMP 37.2; O2SAT 99
== END 2022-01-28 10:28 | disposition home or self-care (01) ==
PROVIDERS: Emergency Provider Nurse Practitioner
DX: J40 Bronchitis, not specified as acute or chronic (principal); J32.9 Chronic sinusitis, unspecified
CPT/HCPCS: 81025; 96372; 99212; G0463

== ENCOUNTER 2022-02-10 08:58 | Emergency (ER) | payer BC, SELFPAY ==
--- NOTE | 2022-02-10 09:39 | EXP.UTC ---
Discharge Plan Disposition Patient Disposition: Home, Self-Care Condition: Good Prescriptions Prescriptions: New amoxicillin [amoxicillin] 500 mg tablet 500 mg PO TID 10 Days Qty: 30 0RF methylprednisolone 4 mg Tablets,Dose Pack 4 mg PO DIRECTED Qty: 21 0RF mxxieklopmzegxu-ogiycrdsl-OR [Bromfed DM] 2-30-10 mg/5 mL Syrup 5 ml PO Q6H PRN (Reason: Cough) Qty: 240 0RF No Action prenat.vits,franko,eqa-udnq-ifxou Tablet 1 tab PO DAILY methylprednisolone [Medrol (Tobias)] 4 mg tablets,dose pack See Rx Instructions .Route .COMPLEX 6 Days Qty: 21 0RF Rx Instructions: taper pack; amoxicillin-pot clavulanate 875-125 mg Tablet 1 tab PO Q12H Qty: 20 0RF guaifenesin [Mucinex] 600 mg tablet extended release 12hr 600 mg PO BID PRN (Reason: cough) Qty: 20 0RF levofloxacin 750 mg tablet 750 mg PO DAILY 7 Days Qty: 7 0RF albuterol sulfate [Proventil HFA] 90 mcg/actuation HFA aerosol inhaler 1 inh inhalation Q6H PRN (Reason: shortness of breath or wheezing) Qty: 8.5 0RF cetirizine [Zyrtec] 10 mg tablet 10 mg PO DAILY Qty: 30 0RF Referrals Follow up/Referrals: Provider,Referral, MD [Primary Care Provider] - See instructions Activity Restrictions/Add. Instructions Additional Instructions/Restrictions: Drink plenty of fluids. Take tylenol or ibuprofen for pain or fever. Take the medications as directed. Follow up with your regular doctor. GO TO THE ER FOR ANY WORSENING SYMPTOMS Clinical Impressions Clinical Impression: Otitis media, Sinusitis Instructions Patient Instructions: Middle Ear Infection, DI for Sinusitis Discharge ED Provider: Ambrocio Cronin [facility] [place] General Stated complaint: Lt ear pain Time Seen by Provider: 02/10/22 09:37 History of Present Illness Provider Complaint: She states that for the past 2 days she has had left ear pain, sore throat and sinus congestion. Related Data Home Medications Medication Instructions Recorded Confirmed prenat.vits,franko,yzh-wcfz-fssos 1 tab PO DAILY 11/09/21 11/09/21 Previous Rx's Medication Instructions Recorded amoxicillin 875 mg-potassium 1 tab PO Q12H #20 tabs 01/19/22 clavulanate 125 mg tablet guaifenesin 600 mg tablet, 600 mg PO BID PRN cough #20 tabs 01/19/22 extended release 12 hr (Mucinex) methylprednisolone 4 mg tablets in See Rx Instructions .Route 01/19/22 a dose pack (Medrol (Tobias)) .COMPLEX 6 days #21 tabs albuterol sulfate 90 mcg/actuation 1 inh inhalation Q6H PRN shortness 01/28/22 aerosol inhaler (Proventil HFA) of breath or wheezing #8.5 grams cetirizine 10 mg tablet (Zyrtec) 10 mg PO DAILY #30 tabs 01/28/22 levofloxacin 750 mg tablet 750 mg PO DAILY 7 days #7 tabs 01/28/22 amoxicillin 500 mg tablet 500 mg PO TID 10 days #30 tabs 02/10/22 ymqypakmqhsqoua-nuayqzhwhdteswk-BX 5 ml PO Q6H PRN Cough #240 mL 02/10/22 2 mg-30 mg-10 mg/5 mL oral syrup (Bromfed DM) methylprednisolone 4 mg tablets in 4 mg PO DIRECTED #21 tabs 02/10/22 a dose pack Allergies Allergy/AdvReac Type Severity Reaction Status Date / Time No Known Allergies Allergy Verified 02/10/22 10:03 [facility] Disclaimer: The information contained in this section may have been updated after the patient was seen, as this information can be updated by other users. Medical History No significant past medical history Social History Smoking Status: Never smoker alcohol intake: never substance use type: denies use current occupational status: other Travel in the last 8 weeks: None ROS Obtained: Yes All systems reviewed & no additional complaints except as documented Constitutional Constitutional: Denies chills, Reports fever(s) and Reports poor appetite Eyes Eyes: Denies eye discharge ENT Ears, Nose, Mouth, and Throat: Denies ear discharge, Reports otalgia, Denies hearing loss, Denies
[2022-02-10 09:55] VITALS: BP 133/84; PULSE 86; RESP 16; TEMP 36.8; O2SAT 97; BMI 32.5
[2022-02-10 10:44] VITALS: BP 133/84; PULSE 86; RESP 16; TEMP 36.8
== END 2022-02-10 10:45 | disposition home or self-care (01) ==
PROVIDERS: Emergency Provider Nurse Practitioner Family
DX: J02.9 Acute pharyngitis, unspecified (principal); H66.92 Otitis media, unspecified, left ear; R06.02 Shortness of breath; R09.81 Nasal congestion; R05.9 Cough, unspecified; Z79.51 Long term (current) use of inhaled steroids; Z79.52 Long term (current) use of systemic steroids; Z79.899 Other long term (current) drug therapy
CPT/HCPCS: 99212; G0463

== ENCOUNTER → 2022-05-25 15:16 | Outpatient (CLI) | payer BC, SELFPAY ==
--- NOTE | 2022-05-25 15:16 | CT_ITS ---
FINAL REPORT TECHNIQUE: Thin section axial images were obtained through the paranasal sinuses without contrast. This study was performed with techniques to keep radiation doses as low as reasonably achievable (ALARA). Individualized dose reduction techniques using automated exposure control or adjustment of mA and/or kV according to the patient's size were employed. CLINICAL HISTORY: chronic rhinitis FINDINGS: There is mucoperiosteal thickening of the bilateral maxillary sinuses with bilateral air-fluid levels. There is partial opacification of the sphenoid sinus with air-fluid level. There is also opacification of the ethmoid air cells. There is bilateral maxillary infundibulum occlusion. There is left nasal septal deviation. There is jacqui bullosa of the right middle turbinate. There is no acute osseous abnormality. Remaining soft tissues are within normal limits. IMPRESSION: Acute on chronic pansinusitis. Reviewed, Interpreted and Dictated by Nguyen Villalobos MD Transcribed by Martha Sheridan Authenticated and [facility]
== END ==
PROVIDERS: PCP Internal Medicine Adolescent Medicine; Visit Provider Otolaryngology
DX: J31.0 Chronic rhinitis (principal); J32.9 Chronic sinusitis, unspecified
CPT/HCPCS: 70486

== ENCOUNTER → 2022-06-15 16:24 | Outpatient (CLI) | payer BC, SELFPAY ==
[2022-06-15 16:45] LABS: Basophils # 0.1 K/mm3 (0-0.2); Basophils % 1.1 % (0.1-2.0); Eosinophils # 0.6 K/mm3 (0.0-0.4); Eosinophils % 7.9 % (0.1-12.0); Hematocrit 35.1 % (37.0-47.0); Hemoglobin 11.1 g/dL (12.2-16.2); Lymphocytes # 1.9 K/mm3 (0.7-4.5); Lymphocytes % 26.6 % (10-50); Mean Corpuscular HGB Conc 31.7 g/dL (31.8-35.4); Mean Corpuscular Hemoglobin 22.9 pg (27.0-31.2); Mean Corpuscular Volume 72.3 fl (81-99); Mean Platelet Volume 8.1 fl (7.4-10.4); Monocytes # 0.4 K/mm3 (0.1-1.0); Monocytes % 5.3 % (1.7-9.3); Neutrophils # 4.2 K/mm3 (1.8-7.8); Neutrophils % 59.2 % (37.0-80.0); Platelet Count 428 K/mm3 (142-424); Red Blood Count 4.86 M/mm3 (4.20-5.40); Red Cell Distribution Width 14.4 % (11.5-17.5); White Blood Count 7.1 K/mm3 (4.8-10.8)
[2022-06-15 18:07] LABS: Urine Pregnancy, HCG Qual. Negative (Negative)
[2022-06-15 18:11] LABS: Alanine Aminotransferase 19 U/L (12-78); Albumin Level 4.5 g/dl (3.5-5.0); Albumin/Globulin Ratio 1.7 (1.1-1.8); Alkaline Phosphatase 59 U/L (38-126); Anion Gap 12.2 mEq/L (5-15); Aspartate Amino Transferase 26 U/L (14-36); Bilirubin,Total 0.3 mg/dl (0.2-1.3); Blood Urea Nitrogen 7 mg/dl (7-17); Carbon Dioxide 26 mmol/L (22.0-30.0); Chloride 106 mmol/L (98-107); Estimated Glomerular Filt Rate 95 ml/min (>60); GFR (African American) 115 ML/MIN (>60); Globulin 2.7 g/dL (1.3-3.2); Glucose 96 mg/dl (74-100); Potassium 4.2 mmoL/L (3.5-5.1); Sodium 140 mmol/L (136-145); Total Protein,Serum 7.2 g/dl (6.3-8.2)
== END ==
PROVIDERS: PCP Internal Medicine Adolescent Medicine; Visit Provider Otolaryngology
DX: Z01.812 Encounter for preprocedural laboratory examination (principal); J32.9 Chronic sinusitis, unspecified
CPT/HCPCS: 36415; 80053; 81025; 85025

== ENCOUNTER 2022-06-21 07:39 | Day surgery (SDC) | payer BC, SELFPAY ==
[2022-06-17 13:15] VITALS: BMI 32.5
[2022-06-21] VITALS (10 sets, daily range): BP systolic 125–141; BP diastolic 59–89; PULSE 86–102; RESP 9–18; TEMP 36.2–43; O2SAT 94–100
--- NOTE | 2022-06-21 08:15 | EXP.ANES.CKL ---
[facility] Disclaimer: The information contained in this section may have been updated after the patient was seen, as this information can be updated by other users. Medical History Chronic sinusitis No significant past medical history Surgical History Hx of wisdom tooth extraction Family History Other Diabetes Social History (Updated 06/21/22 @ 07:59 by Marija Mujica RN) Smoking Status: Never smoker alcohol intake: never substance use type: denies use current occupational status: unemployed Travel in the last 8 weeks: None [facility] Anesthesia Checklist Patient Identification Patient Identification: Verbal (Name & ) Structural Data Admitted From: Home Planned Operative Procedure/s: septoplasty Consent for Planned Operative Procedure(s) Verified: Yes NPO Status Verified Time NPO: 00:00 Additional verifications Anesthesia Reactions: No Hx Blood Transfusions: No Blood Transfusion Reaction: No Airway Assessment C-Spine Mobility Assessed: Yes TMJ Mobility Assessed: Yes Dentition: Good Dentition Neurological Assessment Level of Consciousness: Awake, Alert and Appropriate Anesthesia Plan Anesthesia Risk discussed: Yes Anesthesia Plan: Verified ASA Class: I Anesthesia Type: General
--- NOTE | 2022-06-21 10:11 | P.OP_ITS ---
Date of procedure: 06/21/22 Pre-op Diagnosis:: Chronic pansinusitis Nasal airway obstruction secondary to nasal septal deviation Right middle turbinate jacqui bullosa Post-op Diagnosis:: Same Procedure performed:: 1. Endoscopic bilateral sphenoethmoidectomy with tissue removal 2. Endoscopic middle meatal antrostomy with tissue removal 3. Endoscopic septoplasty with removal of left septal spur 4. Endoscopic right middle turbinate jacqui bullosa resection Surgeon:: Jaleel Dill III, MD MECHANICAL SYSTEMS CONTROL ENGINEER:: Jeff Pop Anesthesia: GETA Estimated blood loss (mL): 40 Operative findings:: Chronic inflammatory changes noted throughout the sinus cavities, left septal spur with impaction laterally, enlarged right middle turbinate jacqui bullosa Operative note:: The patient was brought to the operating room placed under general endotracheal anesthesia. Topical Afrin and lidocaine was applied on cottonoids within the nasal cavity. I also injected 1% lidocaine with epinephrine into the septal mucosa bilaterally in the lateral nasal jacob. After the area is prepared and draped in usual fashion began the incision in the left side endoscopically anterior to the septal spur which was quite generous. Once this was done I was then able to create a plane in the sub mucosa periosteum layer. The septal spur was delineated and removed. This did create a mucosal dehiscence bilaterally. I was able to reapproximate the skin edges and replace 1 straighten piece of ethmoid bone that had been crushed. This did provide a partition between the 2 sides. After this mucosa was draped in the proper location, 2 Lester stents were cut to size and sutured via a transseptal 3-0 nylon suture. At this point the endoscopes were then used to address the left sinuses. The left uncinate process was removed and the anterior and posterior ethmoid cells were exonerated. I then extended back into the sphenoid sinus which was also noted to have thickened mucosal lining but no evidence of active infection. The middle meatus was then probed and opened more widely using a backbiting and down-biting instrument. This tissue was removed and sent for pathologic evaluation. A nova pack pack was then placed within the middle meatus on the left it was infiltrated with 1% lidocaine with epinephrine and mupirocin ointment was placed as a topical dressing. Attention was then turned towards the right side. Under endoscopic guidance I removed the lateral wall of the jacqui bullosa of the middle turbinate there was a mucosal lining noted within the turbinate which was also removed. I then opened into the anterior posterior ethmoid cells that were exonerated. I was unable to find the ostia of the sphenoid sinus and this was opened more widely. Sinus contents were explored and noted to be healthy. The middle meatus was then probed and opened widely using a backbiting down-biting instrument. The sinus contents showed only mild membrane thickening. No the pack packing was then placed on the right side followed by mupirocin ointment and infiltration of 1% lidocaine to saturate the pack. The patient stomach contents were aspirated clear. She was then awakened in the operating room taken recovery room in good condition. The estimated blood loss less than 40 mL. Condition: stable Disposition: PACU Complications:: None
--- NOTE | 2022-06-21 10:13 | P.PNANES_ITS ---
[facility] Anesthesia Record Part I Anesthesia Record I Intake, IV Amount: 500 Estimated blood loss (mL): 50 Urine output (mL): 0 Blood Pressure: 125/68 SaO2: 94 Pulse Rate: 86 Respiratory Rate: 9 Temperature: 97.6 F Patient is:: Drowsy and Stable Stable to PACU at:: 10:09
--- NOTE | 2022-06-22 07:35 | EXP.ANES.II ---
[facility] Anesthesia Record Part II Anesthesia Record Part II Discharge Time: 10:39 Destination: Surgical Day Care (OP Surgery) PACU nurse assessment reviewed?: Yes Patient Condition:: Good Anesthesia Complications:: None Swallowing reflex intact?: Yes Cyanosis?: No Blood Pressure: 131/59 Pulse Rate: 102 Temperature: 97.8 F Mental Status: Alert & Oriented Pain level:: 0 Nausea and/or vomitting:: None Intake, IV Amount: 0
[2022-06-22 07:37] VITALS: BP 131/59; PULSE 102; TEMP 36.6
== END 2022-06-21 11:55 | disposition home or self-care (01) ==
PROVIDERS: PCP Internal Medicine Adolescent Medicine; Visit Provider Otolaryngology
PROC: (CPT 30520; principal; 2022-06-21 09:15)
DX: J34.2 Deviated nasal septum (principal); J33.8 Other polyp of sinus; J32.9 Chronic sinusitis, unspecified
CPT/HCPCS: 31267; 30520; 31240; 96374; J2405

== ENCOUNTER 2023-08-10 11:21 | Outpatient (POV) | payer BC, SELFPAY | END 2023-08-10 23:59 | disposition home or self-care (01) | LOC: SC 11:21 | PROVIDERS: Visit Provider Specialist/Technologist | DX: Z00.00 Encounter for general adult medical examination without abnormal findings (principal) ==

== ENCOUNTER 2023-08-15 15:35 | Outpatient (CLI) | payer BC, SELFPAY ==
[2023-08-15 15:59] LABS: Basophils # 0.1 K/mm3 (0-0.2); Basophils % 1.1 % (0.1-2.0); Eosinophils # 0.2 K/mm3 (0.0-0.4); Eosinophils % 3.6 % (0.1-12.0); Hematocrit 32.6 % (37.0-47.0); Hemoglobin 10.3 g/dL (12.2-16.2); Lymphocytes # 2.1 K/mm3 (0.7-4.5); Lymphocytes % 34.1 % (10-50); Mean Corpuscular HGB Conc 31.7 g/dL (31.8-35.4); Mean Corpuscular Volume 69.5 fl (81-99); Mean Platelet Volume 7.3 fl (7.4-10.4); Monocytes # 0.4 K/mm3 (0.1-1.0); Monocytes % 5.9 % (1.7-9.3); Neutrophils # 3.4 K/mm3 (1.8-7.8); Neutrophils % 55.3 % (37.0-80.0); Platelet Count 355 K/mm3 (142-424); Red Blood Count 4.68 M/mm3 (4.20-5.40); Red Cell Distribution Width 15.7 % (11.5-17.5); White Blood Count 6.1 K/mm3 (4.8-10.8)
[2023-08-15 16:50] LABS: Alanine Aminotransferase 15 U/L (12-78); Albumin Level 4.3 g/dl (3.5-5.0); Albumin/Globulin Ratio 1.6 (1.1-1.8); Alkaline Phosphatase 49 U/L (38-126); Anion Gap 15.9 mEq/L (5-15); Aspartate Amino Transferase 25 U/L (14-36); Bilirubin,Total 0.4 mg/dl (0.2-1.3); Blood Urea Nitrogen 8 mg/dl (7-17); Calcium 9.4 mg/dl (8.4-10.2); Carbon Dioxide 23 mmol/L (22.0-30.0); Chloride 102 mmol/L (98-107); Estimated Glomerular Filt Rate 95 ml/min (>60); GFR (African American) 115 ML/MIN (>60); Globulin 2.7 g/dL (1.3-3.2); Glucose 91 mg/dl (74-100); Potassium 3.9 mmoL/L (3.5-5.1); Sodium 137 mmol/L (136-145)
[2023-08-15 18:08] LABS: HCG Qualitative, Serum Negative (Negative)
== END 2023-08-15 23:59 | disposition home or self-care (01) ==
LOC: LAB 15:37
PROVIDERS: PCP Internal Medicine Adolescent Medicine; Visit Provider Otolaryngology
DX: Z01.818 Encounter for other preprocedural examination (principal); H69.91 Unspecified Eustachian tube disorder, right ear
CPT/HCPCS: 36415; 80053; 84703; 85025

== ENCOUNTER 2023-08-22 07:53 | Day surgery (SDC) | payer BC, SELFPAY ==
[2023-08-19 13:47] VITALS: BMI 28.6
[2023-08-22] VITALS (8 sets, daily range): BP systolic 110–144; BP diastolic 72–96; PULSE 78–96; RESP 11–16; TEMP 36.3–36.9; O2SAT 93–100
[2023-08-22 08:34] LABS: Urine Pregnancy, HCG Qual. Negative (Negative)
--- NOTE | 2023-08-22 08:47 | EXP.ANES.CKL ---
[facility] Disclaimer: The information contained in this section may have been updated after the patient was seen, as this information can be updated by other users. Medical History Dysfunction of eustachian tube Chronic sinusitis No significant past medical history Surgical History S/P functional endoscopic sinus surgery Hx of wisdom tooth extraction Family History Other Diabetes Social History Smoking Status: Never smoker alcohol intake: never substance use type: denies use current occupational status: employed Travel in the last 8 weeks: None [facility] Anesthesia Checklist Patient Identification Patient Identification: Arm Band, Family and Verbal (Name & ) Structural Data Admitted From: Home Planned Operative Procedure/s: Nasal endoscopy w/eustacian tuboplasty Consent for Planned Operative Procedure(s) Verified: Yes Verified Documents: Surgical Consent and History and Physical NPO Status Verified Time NPO: 21:00 Chart Verification Results Verified: CBC, BMP and HCG Additional verifications Patient : No Anesthesia Reactions: No Hx Blood Transfusions: No Blood Transfusion Reaction: No Cardiovascular Assessment Heart Sounds: S1 & S2 Pulse Rhythm: Irregular Peripheral Edema: No Airway Assessment Mallampati Score:: Class II C-Spine Mobility Assessed: Yes (FROM) TMJ Mobility Assessed: Yes Dentition: Good Dentition (Nothing loose per pt.) Neurological Assessment Level of Consciousness: Awake, Alert, Appropriate and Follows Commands Hx Seizures: No Numbness or tingling in extremities: No Anesthesia Plan Anesthesia Risk discussed: Yes Anesthesia Plan: Verified ASA Class: I Anesthesia Type: General
[2023-08-22] MEDS: OXYMETAZOLINE NASAL SPRAY 0.05% 15ML NS (09:17)
[2023-08-22] MEDS: LACTATED RINGERS 1000ML 1,000 ML 25 ML IV (09:17)
[2023-08-22] MEDS: LIDOCAINE 1% W/EPI 1:100,000 20ML VIAL 20 ML (09:50)
--- NOTE | 2023-08-22 10:10 | P.PNANES_ITS ---
[facility] Anesthesia Record Part I Anesthesia Record I Intake, IV Amount: 800 Hydration: Adequate Estimated blood loss (mL): 10 Urine output (mL): 0 Blood Pressure: 127/82 SaO2: 93 Pulse Rate: 96 Airway Patency: Patent Respiratory Rate: 11 Temperature: 98.2 F Patient is:: Drowsy Stable to PACU at:: 10:09
--- NOTE | 2023-08-22 10:12 | P.OP_ITS ---
Date of procedure: 08/22/23 Pre-op Diagnosis:: Chronic eustachian tube dysfunction Post-op Diagnosis:: Same Procedure performed:: Bilateral endoscopic eustachian tuboplasty Surgeon:: Jaleel Dill III, MD CLASSIFIED ADVERTISING SUPERVISOR:: Sancho Gorman Anesthesia: GETA Estimated blood loss (mL): 5 Operative findings:: prior endoscopic sinus surgery noted, small posterior septal perforation Operative note:: The patient was brought to the operating placed under general endotracheal anesthesia. Topical Afrin and lidocaine was applied on nasal cottonoids. These were later removed endoscopically I injected 1% lidocaine with epinephrine into the sphenoethmoid recess above the eustachian tube opening. Using the [employer] eustachian tube balloon I entered the left eustachian tube opening and advance the balloon to its proper position. This was left inflated for approximately 2 minutes. Once it was let down, no evidence of any inflammatory changes or bleeding was noted. A similar procedure was performed on the right side. Once this was completed, the patient was awakened in the operating room taken recovery good condition estimated blood loss for procedures was less than 5 mL. Condition: stable Disposition: PACU Complications:: none
--- NOTE | 2023-08-23 12:36 | EXP.ANES.II ---
[facility] Anesthesia Record Part II Anesthesia Record Part II Discharge Time: 10:39 Destination: [facility] PACU nurse assessment reviewed?: Yes Patient Condition:: Good Anesthesia Complications:: None Swallowing reflex intact?: Yes Airway Patency: Patent Cyanosis?: No Blood Pressure: 110/96 SaO2: 99 Respiratory Rate: 14 Pulse Rate: 83 Temperature: 97.3 F Mental Status: Alert & Oriented Pain level:: 2 Nausea and/or vomitting:: None Intake, IV Amount: 1,000 Hydration: Adequate
[2023-08-23 12:37] VITALS: BP 110/96; PULSE 83; RESP 14; TEMP 36.3; O2SAT 99
== END 2023-08-22 11:13 | disposition home or self-care (01) ==
PROVIDERS: PCP Internal Medicine Adolescent Medicine; Visit Provider Otolaryngology
PROC: (CPT 30520; principal; 2023-08-22 09:30)
DX: H69.83 Other specified disorders of Eustachian tube, bilateral (principal)
CPT/HCPCS: 69706; 81025; C1726; J1100; J2250; J2405; J2710; J3010; J7120

== ENCOUNTER 2024-09-17 23:53 | Outpatient (CLI) | payer BC, SELFPAY | END 2024-09-17 23:59 | disposition home or self-care (01) | LOC: LAB.DROPOF 23:54 | PROVIDERS: PCP Internal Medicine Adolescent Medicine; Visit Provider Student in an Organized Health Care Education/Training Program | DX: R39.9 Unspecified symptoms and signs involving the genitourinary system (principal) | CPT/HCPCS: 87086 ==

== ENCOUNTER 2024-11-05 09:51 | Outpatient (CLI) | payer BC, SELFPAY ==
--- OUTSIDE RECORDS SUMMARY | 2024-06-02 17:30 | XMS_ITS ---
Author Organization [facility] Address [address] [facility] [address] [facility] [address] [place] [address] Care Team Providers Care Small Animal Veterinarian Name Role Phone Tremayne Naranjo Primary Care Provider [phone] Migration, Provider Unavailable [facility] Conversion Encounter Medications Medication SIG (Take, Route, Frequency, Duration) Notes Start Date End Date Status Cetirizine-Pseudoephedrine ER 5-120 MG 1 tab(s) orally 2 times a day; Duration: 30 days 05/31/2023 Active Fluticasone Propionate 50 MCG/ACT 1 spray(s) in each nostril once a day; Duration: 30 days 05/31/2023 Active Multivitamin - 1 tab(s) orally once a day Active Amoxicillin 875 MG 1 tab(s) orally ever y 12 hours; Duration: 7 days 05/31/2023 Active Encounters Encounter Location Date Provider Diagnosis [facility] [address] [facility] [address] [place] [address] 06/02/2024 Provider Migration Acute right otitis media H66.91 Assessments Encounter Date Diagnosis (ICD Code) Assessment Notes Treatment Notes Treatment Clinical Notes Section Notes 06/02/2024 Acute right otitis media (ICD-10 - H66.91) Plan Of Treatment Medication Medication Name Sig Start Date Stop Date Notes Cetirizine-Pseudoephedrine E R 5-120 MG 1 tab(s) orally 2 times a day; Duration: 30 days 05/31/2023 Fluticasone Propionate 50 MCG/ACT 1 spray(s) in each nostril once a day; Duration: 30 days 05/31/2023 Amoxicillin 875 MG 1 tab(s) orally ever y 12 hours; Duration: 7 days 05/31/2023 Progress Notes * Honey BERKOWITZ ADOB:01/1986 (38 yo F)Acc No.[id number]:06/02/2024 Patient: Honey NYE A Provider: Cielo Acuna :1985 A ge:38 Y S ex:Female Date:06/02/2024 Address:[facility] [place], [id number] Pcp:Tremayne Naranjo Subjective: * Chief Complaints: * 1 . Multum To Medispan Conversion Encounter. * Medical History: * Medications: T aking Multivitamin - Tablet 1 tab(s) orally once a day Objective: * Vitals: Assessment: * Assessment: 1. A cute right otitis media - H66.91 (Primary) Plan: * Treatment: * * Electronic signature of Prov ider Migration on 11/07/2024 at 09:57 AM EDT Sign off status: Pending * Provider: Cielo Acuna Date: 0 06/02/2024 Generated for Galina gross/Rodrigo/Jessicaitting on: 0 11/07/2024 09:57 AM EDT
--- OUTSIDE RECORDS SUMMARY | 2024-11-07 09:58 | XMS_ITS | Patient Health Record ---
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 Role Phone Marco Naranjohen Primary Care Provider Migration, Provider Unavailable Unavailable Allergies No Known Allergies Reason For Referral No Information Medications Medication SIG (Take, Route, Frequency, Duration) [...] [facility] [address] [place] [address] [facility] [address] [place] [address] 06/02/2024 Provider Migration Acute right otitis media H66.91 Assessments Encounter Date Diagnosis (ICD Code) Assessment Notes Treatment Notes Treatment Clinical Notes Section Notes 06/02/2024 Acute right otitis media (ICD-10 - H66.91) Plan Of Treatment No Information Insurance Providers Payer Name Payer Address Payer Phone Subscriber Number Group Number Insured Name Patient Relationship to Insured Coverage Start Date Coverage End Date [employer] [address] [place] [address] [id number] Honey Veliz Self - patient is the insured Medical (General) History Medical History History ICD Code recurrent otitis and sinusitis Surgical History Surgery Date(Month/Year) wisdom teeth extracted 2012 Nasal Septoplasty 05/2022 Hospitalization History Reason Date(Month/Year) child 02/2014
== END 2024-11-05 23:59 ==
LOC: LAB.DROPOF 11-07 09:51
PROVIDERS: PCP Internal Medicine Adolescent Medicine; Visit Provider Nurse Practitioner Obstetrics & Gynecology
DX: N39.0 Urinary tract infection, site not specified (principal)
CPT/HCPCS: 87086